=== PATIENT | male | born 1985 | race Caucasian/White ===

== ENCOUNTER 2019-01-10 09:43 | Inpatient (IN) | payer OTHER ==
[2019-01-08 15:09] LABS: BILIRUBIN,URINE NEGATIVE (NEGATIVE); BLOOD, URINE NEGATIVE (NEGATIVE); CLARITY/URINE CLEAR (CLEAR); COLOR,URINE YELLOW (YELLOW); GLUCOSE,URINE NEGATIVE (NEGATIVE); KETONES,URINE NEGATIVE (NEGATIVE); LEUKOCYTE ESTERASE ,URINE NEGATIVE (NEGATIVE); NITRITE, URINE NEGATIVE (NEGATIVE); PROTEIN URINE NEGATIVE (NEGATIVE); UROBILINOGEN,URINE 0.2 (0.2-1.0)
[2019-01-08 15:21] LABS: BASOPHILS % (AUTO) 0.4 % (0.0-2.0); EOSINOPHILS # (AUTO) 0.1 K/uL (0.0-0.4); EOSINOPHILS % (AUTO) 1.1 % (0.0-4.0); HEMATOCRIT 40.6 % (36-54); HEMOGLOBIN 13.5 g/dL (14.0-18.0); LYMPHOCYTES # (AUTO) 2.2 K/uL (1.0-5.5); LYMPHOCYTES % (AUTO) 36.1 % (20.5-51.5); MEAN CORPUSCULAR HEMOGLOBIN 29 pg (27-31); MEAN CORPUSCULAR HGB CONC 33 % (32-36); MEAN CORPUSCULAR VOLUME 88 fL (79.0-98.0); MONOCYTES # (AUTO) 0.7 K/uL (0.0-1.0); NEUTROPHILS # (AUTO) 3.1 K/uL (1.8-7.7); NEUTROPHILS % (AUTO) 51.4 % (40.0-70.0); PLATELET COUNT (AUTO) 277 K/uL (130-430); RED BLOOD CELL COUNT(AUTO) 4.62 MIL/uL (4.2-6.2); RED CELL DISTRIBUTION WIDTH 13.9 % (9.0-15.0)
[2019-01-08 15:35] LABS: CALCIUM 9.5 mg/dL (8.4-11.0); CREATININE 0.72 mg/dL (0.55-1.30)
[2019-01-08 16:01] LABS: PROTHROMBIN TIME 9.9 SECS (9.5-12.5)
[~2019-01-10] VITALS: Ht 167.6 cm; Wt 77.6 kg
[2019-01-10] MEDS ORDERED: POLYMYXIN 500,000/BACIT.10,000 UNITS in NS IRR 1 L IR ONE (11:24)
[2019-01-10] MEDS ORDERED: NACL 0.9% 1,000 ML IV SCH (11:30)
[2019-01-10] MEDS ORDERED: HYDR-4272 PO (11:38)
[2019-01-10] MEDS ORDERED: fentaNYL CITRATE/PF 100 MCG/2 ML AMP IVP PRN ×2 (12:15)
[2019-01-10] MEDS ORDERED: ONDANSETRON HCL 4 MG/2 ML VIAL IVP PRN (12:15)
[2019-01-10] MEDS ORDERED: NALBUPHINE HCL 10 MG/ML AMP IVP PRN (12:15)
[2019-01-10] MEDS ORDERED: FENT2mCg/mL-ROPIVA0.2%/NS EPID 200 ML EP SCH (12:15)
[2019-01-10] MEDS ORDERED: NALOXONE HCL 0.4 MG/ML AMP (NARCAN) IVP PRN (12:15)
[2019-01-10] MEDS ORDERED: FENT2mCg/mL-ROPIVA0.2%/NS EPID 200 ML EP ONE (13:08)
--- NOTE | 2019-01-10 14:15 | NUR ---
Post admission notes From OR after debridement of bone graft left tibia from left hip under spinal anesthesia, on admission to floor alert/oriented x4 denies any pain to left leg , elevated to pillow with dressing dry and intact , left hip dressing dry/clean ,with epidural catheter intact and secured , epidural fentanyl drip at 12 ml/hour , lower leg is numb , unable to move , dorsalis pedis pulse positive left leg, will continue to monitor, patient oriented to room , safety/fall precaution initiated verbalized understanding.
[2019-01-10 14:31] VITALS: BP_SYST 109
--- NOTE | 2019-01-10 15:00 | NUR ---
Transfer of Care: received report from Johnna FARLEY. Patient is awake, alert, and oriented. Epidural intact. No pain or discomfort noted. No signs of respiratory distress or SOB. Left leg elevated. Safety precautions in place and call light within reach. Will continue to monitor.
[2019-01-10] MEDS: ceFAZolin SODIUM 1 GM in D5W 50 ML IV SCH (16:34)
--- NOTE | 2019-01-10 16:34 | NUR ---
Rounds: Patient in bed resting, girlfriend at bedside. Patient denies pain and discomfort. Palpable peripheral pulses, patient states "I'm starting to feel my stomach area and I wasn't feeling it before. I still can feel my legs though." Patient reassured. Extremities normal in color and warm to touch. IVPB Ancef started, no signs of infiltration noted. Safety precautions in place and call light within reach.
--- NOTE | 2019-01-10 18:45 | NUR ---
Spoke to Dr. Erazo: Spoke to Dr. Erazo registered medical transcriptionist for Dr. Hall. Made aware that patient has not urinated and still can't feel anything from the waist down. Per Dr. Erazo "Do an in and out cath as needed and call the anesthesiologist and see if he'd like to decrease the epidural dose." Orders to be carried out.
--- NOTE | 2019-01-10 18:51 | NUR ---
Called Dr. Kay: Called Dr. Kay, went straight to voicemail. Left a voicemail with a call back number.
--- NOTE | 2019-01-10 18:59 | NUR ---
In and Out Cath: Attempted to do in and out cath, patient refusing at this time. He stated "Can we wait on it, I'm gonna try to do it by myself. I'm starting to feel some tingling in my legs and I know it'll come back to me." Will endorse to oncoming RN.
--- NOTE | 2019-01-10 19:02 | NUR ---
Closing Note: Patient in bed resting. Patient is awake and alert. Patient denies pain and discomfort. Breathing is even and unlabored on room air. SCD's in place. Epidural site intact, running 12 ml/hr per MD orders. IV patent and intact TKO. Dressing on left lower extremity and left hip intact. Safety precautions in place; bed in lowest position, wheels locked, side rails x3, bed alarm activated and call light within reach. All needs met. Will endorse plan of care to NOC, nurse.
[2019-01-10 20:00] VITALS: BP_SYST 116
--- NOTE | 2019-01-10 20:00 | NUR ---
INITIAL NOTE AT INITIAL ASSESSMENT, PATIENT IS RESTING IN BED, STABLE, NO SIGNS OF RESPIRATORY DISTRESS. PATIENT VERBALIZES NO PAIN. PLAN OF CARE FOR THE EVENING IS COMMUNICATED WITH THE PATIENT. PATIENT SUCCESSFULLY DEMONSTRATE USAGE OF CALL LIGHT. CALL LIGHT IS PLACED WITHIN REACH OF PATIENT. BED IS LOCKED, ALARMED, AND AT THE LOWEST SETTING. FALL, SAFETY, AND RESPIRATORY PRECAUTIONS WILL BE IN PLACE THROUGHOUT THE SHIFT. ORTHOPEDIC ORDERS WILL BE FOLLOWED THROUGHOUT THE SHIFT.
--- NOTE | 2019-01-10 21:40 | NUR ---
INCENTIVE SPIROMETER PATIENT SUCCESSFULLY DEMONSTRATED USAGE OF INCENTIVE SPIROMETER AT THIS TIME. HE IS AVERAGING ABOUT 3000 ML WITHOUT PAIN. PATIENT VERBALIZES KNOWLEDGE TO PRACTICE "10 TIMES AN HOUR" WHILE AWAKE. HIS OXYGEN SATURATION ON ROOM AIR IS 100%. WILL CONTINUE TO ENCOURAGE USAGE OF INCENTIVE SPIROMETER THROUGHOUT THE SHIFT.
--- NOTE | 2019-01-10 22:00 | NUR ---
NOTE PATIENT IS SLEEPING, STABLE, NO SIGNS OF RESPIRATORY DISTRESS. CALL LIGHT IS WITHIN REACH. BED IS LOCKED, ALARMED, AND AT THE LOWEST LEVEL.
[2019-01-10 23:06] VITALS: BP_SYST 108
--- NOTE | 2019-01-11 | NUR ---
STRAIGHT CATH STRAIGHT CATH PERFORMED AT THIS TIME USING STERILE PROTOCOL FOR PATIENT'S URINE RETENTION, PATIENT TOLERATED WELL. 1000 ML CLEAR URINE OUTPUT NOTED. PATIENT VERBALIZES RELIEF FROM BLADDER MUSCLE CRAMPS. HE IS REPOSITIONED FOR COMFORT. CALL LIGHT IS WITHIN REACH. BED IS LOCKED, ALARMED, AND AT THE LOWEST LEVEL.
[2019-01-11] MEDS: ceFAZolin SODIUM 1 GM in D5W 50 ML IV SCH ×2 (00:39→09:29)
--- NOTE | 2019-01-11 02:00 | NUR ---
NOTE PATIENT IS SLEEPING, STABLE, NO SIGNS OF RESPIRATORY DISTRESS. CALL LIGHT IS WITHIN REACH. BED IS LOCKED, ALARMED, AND AT THE LOWEST LEVEL.
--- NOTE | 2019-01-11 02:00 | NUR ---
EPIDURAL BAG CHANGE EPIDURAL BAG CHANGED AT THIS TIME WITH CHARGE NURSE PACO PER PROTOCOL. PATIENT IS RESTING IN BED, STABLE, NO SIGNS OF RESPIRATORY DISTRESS. CALL LIGHT IS WITHIN REACH. BED IS LOCKED, ALARMED, AND AT THE LOWEST LEVEL.
--- NOTE | 2019-01-11 04:00 | NUR ---
NOTE PATIENT IS SLEEPING, STABLE, NO SIGNS OF RESPIRATORY DISTRESS. CALL LIGHT IS WITHIN REACH. BED IS LOCKED, ALARMED, AND AT THE LOWEST LEVEL.
[2019-01-11] MEDS: DIPHENHYDRAMINE INJ 50 MG/ML VIAL IVP PRN ×2 (04:19→20:23)
[2019-01-11] MEDS: HYDROcodone/ACETAMIN 10-325 MG TAB PO PRN ×3 (04:20→18:06)
--- NOTE | 2019-01-11 05:10 | NUR ---
NOTE PATIENT IS SLEEPING, STABLE, NO SIGNS OF RESPIRATORY DISTRESS. CALL LIGHT IS WITHIN REACH. BED IS LOCKED, ALARMED, AND AT THE LOWEST LEVEL.
--- NOTE | 2019-01-11 06:45 | NUR ---
CLOSING NOTE THROUGHOUT THE NIGHT, PATIENT SLEPT WELL. AT THIS TIME, PATIENT IS RESTING IN BED, STABLE, NO SIGNS OF RESPIRATORY DISTRESS. CALL LIGHT IS WITHIN REACH. BED IS LOCKED, ALARMED, AND AT THE LOWEST LEVEL. FALL, SAFETY, AND RESPIRATORY PRECAUTIONS HAVE BEEN IN PLACE THROUGHOUT THE SHIFT. WILL CONTINUE TO MONITOR UNTIL SHIFT REPORT IS GIVEN AT BEDSIDE TO AM NURSE.
[2019-01-11 08:13] VITALS: BP_SYST 125
--- NOTE | 2019-01-11 08:13 | NUR ---
INITIAL ROUNDS Received pt AAOx4, no s/s resp distress, only c/o mild pain when he repositioned himself in bed for his breakfast, then the pain decreased. IVF infusing well to right hand at ordered rate with no s/s infiltration to site. Pt has Epidural Drip at 12 ml/hr, epidural site checked and no s/s infiltration/infection, no warmth, intact. Plan of care for the day reviewed with the pt-pt verbalized his understanding. Noted dressing clean dry and intact to left hip area and left LE. Neurovascular checks completed. Pain management, skin and safety discussed-teach back done. Pt encouraged to participate in physical therapy-pt stated he will try. Call light within reach.
--- NOTE | 2019-01-11 10:20 | NUR ---
Nutrition Update Arjun Scale 17 noted. Pt admitted for unspecified fx shaft of L tibia, subs for close fx. Diet: regular BMI: 27.6 kg/m2 RD to follow per nutrition care standards.
[2019-01-11 11:36] VITALS: BP_SYST 127
[2019-01-11 15:32] VITALS: BP_SYST 135
--- NOTE | 2019-01-11 16:16 | NUR ---
ROUNDS/EPIDURAL STOPPED Pt resting quietly in bed with no s/s resp distress, c/o "heaviness" to his LLE. LLE elevated on pillow and ice packs placed to LLE. Dr. Kay-anesthesiologist called and informed of pt's c/o numbness to LLE-MD stated he will come and remove the Epidural soon. Epidural stopped per DR. Kay. Call light within reach.
--- NOTE | 2019-01-11 16:55 | NUR ---
EPIDURAL REMOVED Dr. Kay removed pt's epidural catheter with tip intact. Bandage placed to area. Pt c/o severe pain-Will give pain medication per Dr. Kay.
[2019-01-11] MEDS ORDERED: MEPERIDINE HCL/PF 50 MG/ML AMP IVP ONE (17:00)
[2019-01-11] MEDS: KETOROLAC TROMETHAMINE 30 MG VIAL IM SCH (18:52)
[2019-01-11] MEDS ORDERED: KETOROLAC TROMETHAMINE 30 MG VIAL ONE (18:57)
--- NOTE | 2019-01-11 19:04 | NUR ---
CLOSING NOTE Pt c/o pain 03/27 to LLE-pt given Toradol IM as ordered per Dr. Erazo. Elevated pt's LLE with bed as high as pt would tolerate-pt refused elevation with a pillow at this time-pt educated on the purpose and benefits of elevating his LLE-pt stated "I Know, but right now it hurts too much!" Needs met, call light within reach.
[2019-01-11 20:00] VITALS: BP_SYST 140
--- NOTE | 2019-01-11 20:00 | NUR ---
INITIAL NOTE AT INITIAL ASSESSMENT, PATIENT IS RESTING IN BED, STABLE, NO SIGNS OF RESPIRATORY DISTRESS. PRN MEDICATION FOR PATIENT'S PAIN COMPLAINT WILL BE GIVEN AT THIS TIME. PLAN OF CARE FOR THE EVENING IS COMMUNICATED WITH THE PATIENT. PATIENT SUCCESSFULLY DEMONSTRATE USAGE OF CALL LIGHT. CALL LIGHT IS PLACED WITHIN REACH OF PATIENT. BED IS LOCKED, ALARMED, AND AT THE LOWEST SETTING. FALL, SAFETY, AND RESPIRATORY PRECAUTIONS WILL BE IN PLACE THROUGHOUT THE SHIFT. ORTHOPEDIC ORDERS WILL BE FOLLOWED THROUGHOUT THE SHIFT.
[2019-01-11] MEDS: MEPERIDINE HCL/PF 25 MG/ML DISP.SYRIN IVP PRN ×2 (20:24→22:37)
--- NOTE | 2019-01-11 22:00 | NUR ---
INCENTIVE SPIROMETER PATIENT SUCCESSFULLY DEMONSTRATED USAGE OF INCENTIVE SPIROMETER AT THIS TIME. HE IS AVERAGING ABOUT 6016-0750 ML WITHOUT PAIN. PATIENT VERBALIZES KNOWLEDGE TO PRACTICE "10 TIMES AN HOUR" WHILE AWAKE. HIS OXYGEN SATURATION ON ROOM AIR IS 95%. WILL CONTINUE TO ENCOURAGE USAGE OF INCENTIVE SPIROMETER THROUGHOUT THE SHIFT.
--- NOTE | 2019-01-11 23:10 | NUR ---
NOTE PATIENT IS SLEEPING, STABLE, NO SIGNS OF RESPIRATORY DISTRESS. CALL LIGHT IS WITHIN REACH. BED IS LOCKED, ALARMED, AND AT THE LOWEST LEVEL.
[2019-01-12] MEDS: DIPHENHYDRAMINE INJ 50 MG/ML VIAL IVP PRN ×2 (00:45→06:55)
--- NOTE | 2019-01-12 00:45 | NUR ---
PAIN NOTE PRN MEDICATION GIVEN FOR PATIENT'S PAIN COMPLAINT. HE IS REPOSITIONED FOR COMFORT. CALL LIGHT IS PLACED WITHIN REACH. BED IS LOCKED, ALARMED, AND AT THE LOWEST LEVEL.
[2019-01-12] MEDS: MEPERIDINE HCL/PF 25 MG/ML DISP.SYRIN IVP PRN ×5 (00:46→13:17)
[2019-01-12 01:22] VITALS: BP_SYST 134
--- NOTE | 2019-01-12 02:20 | NUR ---
STRAIGHT CATH STRAIGHT CATH PERFORMED AT THIS TIME USING STERILE PROTOCOL FOR PATIENT'S URINE RETENTION, PATIENT TOLERATED WELL. 8500 ML CLEAR URINE OUTPUT NOTED. PATIENT VERBALIZES RELIEF FROM BLADDER MUSCLE CRAMPS. HE IS REPOSITIONED FOR COMFORT. CALL LIGHT IS WITHIN REACH. BED IS LOCKED, ALARMED, AND AT THE LOWEST LEVEL.
--- NOTE | 2019-01-12 05:10 | NUR ---
NOTE PATIENT IS SLEEPING, STABLE, NO SIGNS OF RESPIRATORY DISTRESS. CALL LIGHT IS WITHIN REACH. BED IS LOCKED, ALARMED, AND AT THE LOWEST LEVEL.
[2019-01-12] MEDS: KETOROLAC TROMETHAMINE 30 MG VIAL IM SCH ×5 (06:00→23:13)
--- NOTE | 2019-01-12 06:45 | NUR ---
CLOSING NOTE PATIENT VERBALIZED THAT PRN MEDICATION FOR HIS PAIN WAS EFFECTIVE THROUGHOUT THE NIGHT. AT THIS TIME, PATIENT IS RESTING IN BED, STABLE, NO SIGNS OF RESPIRATORY DISTRESS. CALL LIGHT IS WITHIN REACH. BED IS LOCKED, ALARMED, AND AT THE LOWEST LEVEL. FALL, SAFETY, AND RESPIRATORY PRECAUTIONS HAVE BEEN IN PLACE THROUGHOUT THE SHIFT. WILL CONTINUE TO MONITOR UNTIL SHIFT REPORT IS GIVEN AT BEDSIDE TO AM NURSE.
--- NOTE | 2019-01-12 07:30 | NUR ---
Opening note Patient resting in bed at this time, no complaints of pain. A/Ox4,No SOB. IV patent, intact, and infusing as ordered. Educated patient on the incentive spirometer, patient verbalized understanding, return demonstration provided by patient. 3000 ml inspired. SCD on right leg as ordered. On aspiration, and safety precautions, HOB kept elevated, bed in lowest position 3 side rails up, call light within reach. Will continue to monitor.
[2019-01-12 08:07] VITALS: BP_SYST 143
--- NOTE | 2019-01-12 09:30 | NUR ---
medications Patient complained of pain. Pain medication given as ordered. No adverse side effects noted. Patient in stable condition. Encouraged patient to use the urinal. Patient verbalized understanding and stated he will attempt at a later time.
--- NOTE | 2019-01-12 11:04 | NUR ---
Rounds patient seen by MD, stated for discharge planning to home for tomorrow. MD also stated for patient to ambulate. Educated patient, patient verbalized understanding.
[2019-01-12 11:28] VITALS: BP_SYST 137
--- NOTE | 2019-01-12 13:00 | NUR ---
Rounds Patient resting in bed at this time, No SOB. No complaints of pain. IV patent, intact and infusing as ordered. Patient noted with good appetite. Ate 100% of lunch, tolerated well. No problem swallowing noted. Addendum: 01/12/19 at 1550 by Carlos Meredith RN Iv patent, intact and saline locked.
--- NOTE | 2019-01-12 13:10 | NUR ---
ambulation Ambulated patient with charge nurse assistance. Patient ambulated using front wheel walker from bed to restroom, and back to bed. Patient unable to bear weight on left leg.
[2019-01-12 15:30] VITALS: BP_SYST 133
--- NOTE | 2019-01-12 15:48 | NUR ---
Rounds Patient resting in bed, no complaints of pain. No SOB. Iv patent, intact and infusing as ordered. Patient in stable condition. Addendum: 01/12/19 at 1551 by Carlos Meredith RN Iv patent, intact, and saline locked.
--- NOTE | 2019-01-12 16:45 | NUR ---
Bladder scan Bladder scan performed, noted with 650ml residual urine. patient stated he will attempt to urinate before attempting straight cath. Patient ambulated to restroom, urine out put of 600, zulay in color noted.
--- NOTE | 2019-01-12 18:12 | NUR ---
Closing note Patient sitting up in bed, eating dinner, tolerating well. No nausea, no vomiting noted. No complaints of pain. A/Ox4,No SOB. IV patent, intact, and infusing as ordered. Educated patient on the incentive spirometer, patient verbalized understanding, return demonstration provided by patient. 3500 ml inspired. SCD on right leg as ordered. On aspiration, and safety precautions, HOB kept elevated, bed in lowest position 3 side rails up, call light within reach. All need met.
--- NOTE | 2019-01-12 19:55 | NUR ---
Initial note: Received report from daysjonathan RN. Patient is sitting up in bed, does not show any acute distress. Alert and oriented x4, tolerating room air. IV site to right wrist is saline locked, patent and benign. Original surgical dressing to right hip and right lower leg present, clean, dry, intact. Call light is with patient. Safety, fall precautions in place. Will continue with plan of care.
[2019-01-12 20:00] VITALS: BP_SYST 119
--- NOTE | 2019-01-12 21:08 | NUR ---
Ambulating: Patient was seen ambulating in the hallway using front-wheel walker, monitored by this RN. Patient does not complain of pain at this time. Encouraged patient to use incentive spirometer hourly while awake, verbalized understanding. At this time, patient inspired 3400 ML. Call light is with patient. Safety, fall precautions in place. Will continue to monitor.
[2019-01-13] MEDS: HYDROcodone/ACETAMIN 10-325 MG TAB PO PRN ×3 (00:22→12:19)
--- NOTE | 2019-01-13 00:24 | NUR ---
BRP/pain: Patient at this time reported ambulating to bathroom to void and have a bowel movement. Per patient, he voided x4 and had BM x2 since start of shift. Patient denies suprapubic pain or difficulty urinating. Patient reported moderate left hip pain after ambulating back to bed. Educated patient regarding [place] 10-325. Medication administered per MD order. Call light is with patient. Safety and fall precautions in place. Will continue to monitor.
[2019-01-13 00:48] VITALS: BP_SYST 122
[2019-01-13 01:07] VITALS: BP_SYST 133
[2019-01-13] MEDS: DIPHENHYDRAMINE INJ 50 MG/ML VIAL IVP PRN (01:59)
--- NOTE | 2019-01-13 03:44 | NUR ---
Rounds: Patient is resting in bed with eyes closed. No distress. Even, unlabored breathing on room air. Left leg elevated on pillows. Call light is with patient. Will continue monitoring.
[2019-01-13] MEDS: KETOROLAC TROMETHAMINE 30 MG VIAL IM SCH ×2 (06:00→12:21)
--- NOTE | 2019-01-13 06:50 | NUR ---
Closing note: Patient is awake in bed, no acute distress noted. Tolerating room air. IV to right hand is patent and benign. Patient reported left hip pain /. Refused scheduled Toradol, stated that [place] 10-325 controlled his pain better. Patient was educated regarding indications and side effects, understanding verbalized. Medication was administered per MD order. Patient refused elevating left lower extremity on pillow at this time despite education, stated that his leg is more comfortable this way. Patient reported ambulating to bathroom and voiding an additional 2 times overnight, denies suprapubic pain or difficulty urinating. Instructed patient to participate in physical therapy today, patient verbalized understanding. All needs met. Safety, fall precautions observed. Hourly rounding done throughout shift. Will endorse care to dayshift RN.
[2019-01-13 08:00] VITALS: BP_SYST 125
--- NOTE | 2019-01-13 08:00 | NUR ---
ASSUMPTION OF CARE: RECEIVED PT ASLEEP, EASILY AROUSED VIA VERBAL OR TACTILE STIMULI, DX: RISK FOR INJURY, R/T S/P HIP SURGERY, S/P LEFT TIBIA SURGERY, LEFT FOOT WARM, DRY, ABLE TO WIGGLE TOES, NO SWELLING NOTED, SURGICAL DRSG INTACT, VSS, NO C/O PAIN, AFEBRILE, IV SITE INTACT, PATENT, NO REDNESS OR SWELLING, ORIENTED TO UNIT, CALL LIGHT PLACED WITHIN REACH, WILL CON'T TO MONITOR AND ASSESS.
--- NOTE | 2019-01-13 08:00 | NUR ---
ASSUMPTION OF CARE: RECEIVED PT ASLEEP, EASILY AROUSED VIA VERBAL OR TACTILE STIMULI, DX: RISK FOR PAIN/DISCOMFORT, R/T PANCREATITIS, VSS, NO C/O PAIN, AFEBRILE, IV SITE INTACT, PATENT, NO REDNESS OR SWELLING, APPEARANCE IS GOOD, NO C/O NAUSEA/VOMITING AT THIS TIME, ORIENTED TO UNIT, CALL LIGHT PLACED WITHIN REACH, WILL CON'T TO MONITOR AND ASSESS. Addendum: 01/13/19 at 1048 by Lindsey Parker RN WRONG PATIENT Addendum: 01/13/19 at 1050 by Lindsey Parker RN WRONG PT
--- NOTE | 2019-01-13 09:00 | NUR ---
VISIT: AT BEDSIDE FOR ASSESSMENT OF PT, NEW ORDERS GIVEN, WILL CON'T TO MONITOR AND ASSESS. Addendum: 01/13/19 at 1049 by Lindsey Parker RN WRONG PT
--- NOTE | 2019-01-13 09:30 | NUR ---
TEACHER ASST: MORNING MEDS GIVEN, PER ORDERED BY Rebeca, TOLERATED WELL, WILL CON'T WITH PLAN OF CARE. Addendum: 01/13/19 at 1050 by Lindsey Parker RN WRONG PATIENT
--- NOTE | 2019-01-13 11:00 | NUR ---
VISIT: AT BEDSIDE FOR ASSESSMENT OF PT, DISCUSSED DIAGNOSIS AND POC WITH PT, VERBALIZES UNDERSTANDING, NEW ORDERS GIVEN, WILL CON'T TO MONITOR AND ASSESS.
[2019-01-13 11:29] VITALS: BP_SYST 145
[2019-01-13] MEDS ORDERED: HYDR-4274 PO (13:41)
--- NOTE | 2019-01-13 14:30 | NUR ---
NURSES NOTES: SPOKE TO REGARDING DISCHARGE ORDERS, CASE MANAGEMENT UNABLE TO PROVIDE FRONT WHEEL WALKER FOR PT'S HOME USE, WILL BE PROVIDED THROUGH [employer], STATES THAT IS OKAY, PT MAY BE DISCHARGED HOME WITH FAMILY SUPPORT.
[2019-01-13 14:59] VITALS: BP_SYST 118
[2019-01-13 15:40] VITALS: BP_SYST 118
--- NOTE | 2019-01-13 16:15 | NUR ---
DISCHARGE: PT DISCHARGED TO HOME IN STABLE CONDITION, INSTRUCTIONS GIVEN WITH PRESCRIPTION AND APPT DATE, VERBALIZES UNDERSTANDING, CRUTCHES PROVIDED FOR ASSIST WITH AMBULATION, IV SITE DISCONTINUED, PRESSURE DRSG APPLIED, TOLERATED WELL, FAMILY AT BEDSIDE, TRANSPORTED TO PARKING LOT VIA WHEELCHAIR.
== END 2019-01-13 15:17 | disposition home or self-care (01) | DRG 494 ==
LOC: SMU 09:43 → STU 14:39 → SMU 01-12 02:46
PROVIDERS: ADMIT Orthopaedic Surgery; ATTEND Orthopaedic Surgery
PROC: 0QB30ZZ Excision of Left Pelvic Bone, Open Approach (ICD-10-PCS; 2019-01-10)
PROC: 0QRH07Z Replacement of Left Tibia with Autologous Tissue Substitute, Open Approach (ICD-10-PCS; principal; 2019-01-10 11:10)
DX: S82.202A Unspecified fracture of shaft of left tibia, initial encounter for closed fracture (principal); F17.210 Nicotine dependence, cigarettes, uncomplicated; X58.XXXA Exposure to other specified factors, initial encounter; Y93.89 Activity, other specified; Y92.89 Other specified places as the place of occurrence of the external cause; Y99.8 Other external cause status
CPT/HCPCS: 36415; 80048; 81003; 85025; 85610-TC; 85730-TC; 87081; 97116-GP; 97530-GP; C1755; G0378; J0690; J1200; J1885; J2175; J2405; J3010; J7030; J7060